=== PATIENT | female | born 1995 | race Caucasian/White ===

== ENCOUNTER 2020-11-23 21:46 | Emergency (ER) | payer BC ==
[2020-11-23 22:04] VITALS: BP 138/99; RESP 16; TEMP 98.3
--- NOTE | 2020-11-23 22:20 | ED ---
Recheck HPI - General Chief Complaint: Recheck/Abnormal Lab/Rx Stated Complaint: Covid test Source: patient Mode of arrival: ambulatory Limitations: no limitations - History of Present Illness Initial Comments: 25 year-old female patient presents for covid-19 test to [place] the border into [place]. Denies any current symptoms or known exposure. She declines further medical screening exam. - Related Data Allergies Allergy/AdvReac Type Severity Reaction Status Date / Time No Known Allergies Allergy Verified 11/23/20 22:01 Review of Systems ROS Statement: Those systems with pertinent positive or pertinent negative responses have been documented in the HPI. ROS Other: All systems not noted in ROS Statement are negative. Past Medical History Past Medical History: No Reported History History of Any Multi-Drug Resistant Organisms: None Reported Past Surgical History: No Surgical Hx Reported Past Psychological History: ADD/ADHD, Anxiety, Depression Smoking Status: Vaper Past Alcohol Use History: None Reported Past Drug Use History: Marijuana General Exam Limitations: no limitations General appearance: alert, in no apparent distress Neurological exam: Present: alert, oriented X3 Psychiatric exam: Present: normal affect, normal mood Skin exam: Present: warm, dry, intact, normal color. Absent: rash Course Vital Signs 11/23/20 11/23/20 22:01 23:01 Temperature 98.3 F Pulse Rate 107 H 97 Respiratory 16 16 Rate Blood Pressure 138/99 O2 Sat by Pulse 95 Oximetry Medical Decision Making - Medical Decision Making 25 year-old female patient presents for COVID-19 test in order to cross border into [place]. She tested negative. She was provided with results. My attending is Dr. Gupta. - Lab Data Lab Results 11/23/20 Range/Units 22:06 Coronavirus (PCR) Not Detected (Not Detectd) Disposition Clinical Impression: Encounter for laboratory testing for COVID-19 virus Disposition: HOME SELF-CARE Condition: Good Instructions (If sedation given, give patient instructions): Coronavirus Disease 2019 (COVID-19) Is patient prescribed a controlled substance at d/c from ED?: No Referrals: Nonstaff,Physician [Primary Care Provider] - 1-2 days
[2020-11-23 23:02] VITALS: PULSE 97
== END 2020-11-23 22:59 | disposition home or self-care (01) ==
LOC: EC 21:46
DX: F17.210 Nicotine dependence, cigarettes, uncomplicated (principal); Z20.822 Contact with and (suspected) exposure to COVID-19
CPT/HCPCS: 87635; 99283